=== PATIENT | female | born 1975 | race Caucasian/White ===

== ENCOUNTER 2022-08-30 06:58 | Emergency (ER) | payer OTHER ==
[~2022-08-30] VITALS: Ht 165.1 cm; Wt 77.1 kg
[~2022-08-30 06:58] MED LIST: INFED50 MG/ML
[2022-08-30] MEDS ORDERED: PROZAC10 M1 PO (07:15)
== END 2022-08-30 12:19 | disposition home or self-care (01) ==
LOC: ER 06:58
DX: U07.1 COVID-19 (principal); Z88.8 Allergy status to other drugs, medicaments and biological substances